=== PATIENT | female | born 1930 | race Caucasian/White ===

== ENCOUNTER 2016-09-22 13:28 | Observation (INO) | payer MEDICARE, OTHER ==
[~2016-09-22] VITALS: Ht 167.6 cm; Wt 67.4 kg
[~2016-09-22 13:28] MED LIST: ASPI-13 PO; FLAX100032 PO; MULT-14 PO
[2016-09-22 13:57] LABS: BASOPHILS % (AUTO) 0.2 % (0-3); EOSINOPHILS % (AUTO) 0.7 % (0-5); MONOCYTES % (AUTO) 8.4 % (4-12); Mean Corpuscular Hemoglobin 30.2 pg (27.0-35.0); Mean Corpuscular Volume 91.6 fL (81-100); NEUTROPHILS % (AUTO) 58.6 % (40-74); Platelet Count 267 bil/L (150-400)
--- NOTE | 2016-09-22 13:59 | ED.REPORT ---
HPI-Stroke / CVA Sep 22, 2016 ED Provider: Darrius Mcfarlane MD Pt is an 86 y/o female w/ a hx of aortic stenosis, HTN, presenting to the ED with her son due to generalized confusion onset 10:00 today. The patient has been under quite a bit of stress recently with her 's terminal illness. The patient has been repeating the same statements/answers many times. There has been some similar symptoms in the past months but of very low frequency. The patient is usually quite sharp and able to follow conversations well. She c/ o associated frontal headache which she attributes to not having eaten anything yet today. He denies focal numbness or weakness, slurred speech, facial droop, vision change, abdominal pain, CP, SOB, N/V/D. The patient had a similar presentation previously but she does not remember what the diagnosis may have been. She has no history of strokes, TIAs, seizures, dementia. She is not anticoagulated. 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 Nursing Notes Stated Complaint: POSSIBLE STROKE Chief Complaint: Stroke Symptoms Nursing Notes Reviewed: Yes Allergies: Coded Allergies: codeine (Verified Allergy, Unknown, NAUSEA, 09/22/16) morphine (Verified Allergy, Unknown, 09/22/16) Scheduled Aspirin (Aspirin) 325 Mg Tablet 325 MG PO DAILY (Reported) Losartan Potassium (Losartan Potassium) 25 Mg Tablet 25 MG PO DAILY (Reported) General Time Seen by Provider: 14:13 Chief Complaint Confusion Hx Obtained From: Patient Arrived By: Walk-in Time last known well 1000 Sudden in Onset?: No Symptom Duration: Since onset Progression Since Onset: Constant Location: : Head Quality: Aching Severity: Current: Mild Severity: Maximum: Mild Similar Sx Previous: Yes Past Medical History Past Medical History Notes: 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 Past Medical History Aortic stenosis Hypertension Arthritis Hx squamos cell cancer Past Surgical History R shoulder Hysterectomy Cholecystectomy R arm Smoking History Never Smoker Social History Alcohol Use: "Social" Ambulatory Status Independent Review of Systems Constitutional: Denies: Chills, Fever Respiratory: Denies: Non-productive cough, Shortness of breath Cardiovascular: Denies: Chest pain GI: Denies: Abdominal pain, Diarrhea, Nausea, Vomiting Neurologic: Reports: Confusion, Headache, Denies: Focal weakness, Numbness, Slurred speech, Unable to speak, Vision change, Weakness Complete sys rev & neg: except as marked. Physical Exam Initial Vital Signs Vital Signs (First) Date Time Temp Pulse Resp B/P Pulse Ox O2 Delivery O2 Flow Rate FiO2 09/22/16 14:24 36.8 67 16 167/90 97 Room Air Initial VS: Reviewed, Vital signs abnormal ENT: Mucous membranes moist, Conjunctiva normal, No scleral icterus Abdomen / GI: Soft, Non-tender, No guarding, No rebound, No distention Extremities: Vascular intact, No swelling, No tenderness Skin: Warm, Dry, No cyanosis Psychiatric: Mood/affect normal, Behavior normal, Normal thought content General/Constitutional: Awake, Alert, No acute distress, Cooperative, Not toxic appearing Head / Eyes: Atraumatic, Normocephalic, PERRL Neck: Atraumatic, Supple, No meningismus, Full range of motion Respiratory / Chest: Atraumatic, Breath sounds NL, Breath sounds = bilat, No respiratory distress, No rales, No rhonchi, No wheezing, No retractions, No stridor, No chest tenderness, No chest wall deformity, No crepitus Cardiovascular: Heart rate NL, Regular rhythm, Heart sounds NL, No gallop, No murmurs, No rubs, Cap refill not delayed, Peripheral circulation NL Neurologic: Oriented X3, Speech NL, No sensory deficits, CN II - XII intact, Cerebellar NL, Memory NL Very subtle right-sided pronator drift Repeating sentences and statements Interpretation & Diagnostics Lab Results Interpretation Result Diagram: 09/22/16 1341 09/22/16 1410 Test 09/22/16 13:41 09/22/16 14:10 09/22/16 14:24 White Blood Count 8.6th/mm3 (3.8-10.1) Red Blood Count 5.00mil/mm3 (3.90-5.20) Hemoglobin 15.1g/dL (12.0-15.6) Hematocrit 45.8% (35.0-46.0) Mean Corpuscular Volume 91.6fL (81-100) Mean Corpuscular Hemoglobin 30.2pg (27.0-35.0) Mean Corpuscular Hemoglobin Concent 33.0% (32.0-37.0) Red Cell Distribution Width 13.1% (12.3-15.4) Platelet Count 267bil/L (150-400) Neutrophils (%) (Auto) 58.6% (40-74) Lymphocytes (%) (Auto) 31.9% (14-46) Monocytes (%) (Auto) 8.4% (4-12) Eosinophils (%) (Auto) 0.7% (0-5) Basophils (%) (Auto) 0.2% (0-3) Prothrombin Time 10.0sec (8.1-12.5) Prothromb Time International Ratio 0.94ratio Activated Partial Thromboplast Time 27.0sec (22.8-33.0) Sodium Level 141mEq/L (134-144) Potassium Level 4.3mEq/L (3.5-5.2) Chloride Level 101mEq/L (97-108) Carbon Dioxide Level 23mmol/L (18-29) Blood Urea Nitrogen 11mg/dL (8-27) Creatinine 0.53mg/dL (0.57-1.00) Estimat Glomerular Filtration Rate 157mL/min (>59) Glucose Level 99mg/dL (60-99) Calcium Level 10.1mg/dL (8.5-10.1) Total Bilirubin 0.4mg/dL (0.0-1.2) Aspartate Amino Transf (AST/SGOT) 17U/L (0-50) Alanine Aminotransferase (ALT/SGPT) 15U/L (0-32) Alkaline Phosphatase 66U/L (25-165) Troponin T < 0.010ug/L (0.0-0.011) Total Protein 7.1g/dL (6.4-8.4) Albumin 4.6g/dL (3.4-5.0) Urine Color Straw (YELLOW) Urine Appearance Hazy (CLEAR,HAZY) Urine pH 7.0 (5.0-8.0) Urine Specific [place] 1.010 (1.003-1.035) Urine Protein Negativemg/dL (NEG,TRACE) Urine Glucose (UA) Negativemg/dL (NEGATIVE) Urine Ketones Negativemg/dL (NEGATIVE) Urine Occult Blood Small (NEGATIVE) Urine Nitrite Negative (NEGATIVE) Urine Bilirubin Negative (NEGATIVE) Urine Urobilinogen Normalmg/dL (NORMAL) Urine Leukocyte Esterase Negative (NEGATIVE) Urine RBC 3-10/hpf (0-2) Urine WBC 0-5/hpf (0-5) Urine Epithelial Cells Occasional/hpf (NONE-MOD) Urine Crystals None seen (NONE SEEN) Urine Bacteria None/hpf (NONE-FEW) Urine Hyaline Casts None/lpf (NONE) Urine Granular Casts None seen (NONE SEEN) Urine Waxy Casts None seen (NONE SEEN) Urine Red Blood Cell Casts None seen (NONE SEEN) Urine White Blood Cell Casts None seen (NONE SEEN) Urine Mucus None seen (None Seen) Urine Trichomonas None seen (NONE SEEN) Urine Yeast None (NONE SEEN) Urinalysis Comment None Urine Culture Reflexed Not indicated ECG Interpretation Time: 14:30 Interpreted by: ED physician Normal ECG Interpretation: Normal ECG w/ rate of... (64), Normal rate, Normal sinus rhythm, No acute ischemic changes, Normal QRS, Normal axis, Normal intervals, Adequate tracing CT Head Interpretation IMPRESSION: Chronic mild to moderate microvascular atherosclerotic change in the deep white matter of each hemisphere, but no stroke is found and no mass or hemorrhage is identified. Dictated by: Crow Hodge M.D. on 09/22/2016 at 14:42 Approved by: Crow Hodge M.D. on 09/22/2016 at 14:43 Study: Head CT no contrast Interpretation / Wet Read by: Interpret - Radiologist Re-Eval/Medical Decision Med Decision/Clinical Course Pt is an 86 y/o female w/ a hx of aortic stenosis, HTN, presenting to the ED with her son due to generalized confusion onset 10:00 today. History is quite limited from the patient as she has little insight into her current situation. Patient's son provides most of the history. He states that around 9:51 AM today that she seemed increasingly confused, was repeatedly asking the same question multiple times and really not been herself. She has had no slurred speech, facial droop, numbness, tingling or lateralizing weakness. She has not fallen or struck her head. Son denies that she has any history of dementia. Here in the emergency department she is afebrile with stable vital signs and examination as above. Her speech is fluent/organized though she seems quite confused repeatedly asking the same question and stating that she was speaking with me earlier when she just met me. EKG was obtained and interpreted by myself as documented above. CT scan of the head was obtained and demonstrated no acute intracranial process. Laboratory studies were obtained as below: CBC: Unremarkable CMP: Unremarkable Troponin: negative Coag studies: normal UA: No evidence of infection Presentation concerning for acute ischemic stroke. That being said, she is outside of the TPA window with last normal sore between 9 AM and 10 AM. 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 Therefore TPA was not administered. No evidence of hemorrhagic process at this time. No evidence of acute infectious etiology. No new medications that would not necessarily explain her altered mental status. At this time, I feel that she warrants admission for further workup as well as risk stratification. Patient discussed with admitting hospitalist and accepted for further management. Re-Evaluation/Progress : Time of Eval: 14:47 Re-Evaluation/Progress Note: Pt rechecked. Pt informed of need for admission for further workup. Pt understands and agrees with plan for admission. All questions addressed. Consultation : Referral / Consult Name: Hannah Smith MD Consulted With: Hospitalist Call Returned at: 14:59 Shop Director: Will see patient, Agrees with eval, Agrees with plan, Accepts admit Counseled Regarding: Diagnosis, Lab results, Need for admission Patient Discharge & Departure Impression: Primary Impression: Altered mental status Altered mental status type: unspecified Qualified Code: R41.82 - Altered mental status, unspecified Additional Impressions: Confusion Cerebrovascular accident CVA mechanism: unspecified Qualified Code: I63.9 - Cerebral infarction, unspecified Disposition: ADMITTED TO HOSPITAL Discharge Condition All VS Reviewed: Yes Condition: Stable Referrals: Ana Quach DO (PCP) Hector Yin MD Attestation Portions of this note were transcribed by Cristobal Clemens. I, Dr. Mcfarlane personally performed the history, physical exam and medical decision-making; I reviewed and confirmed the accuracy of the information in the transcribed note. Signed by Angélica Burnett, 09/22/16 - 1500 copies to: Hector Yin MD; Ana Quach Beck O MD Sep 22, 2016 13:59 CRISTOBAL CLEMENS Sep 22, 2016 14:13
[2016-09-22 14:11] LABS: INR 0.94 ratio
[2016-09-22 14:24] VITALS: BP 167/90; PULSE 67; RESP 16; O2SAT 97
[2016-09-22 14:33] LABS: APPEARANCE,URINE HAZY (CLEAR,HAZY); COLOR,URINE STRAW (YELLOW); OCCULT BLOOD,URINE SMALL (NEGATIVE); UROBILINOGEN,URINE NORMAL (NORMAL)
[2016-09-22] MEDS ORDERED: LOSA50TA37 PO (14:36)
--- NOTE | 2016-09-22 14:45 | DRSVH ---
PROCEDURE: CT BRAIN WITHOUT CONTRAST ([id number]) INDICATIONS: Stroke, CONFUSION, MEMORY LOSS TECHNIQUE: Noncontrast 4.5 mm thick angled axial sections acquired from the foramen magnum to the vertex, with c oronal reformats. COMPARISON: None. FINDINGS: Image quality: Excellent. CSF spaces: Basal cisterns are patent. No extra-axial fluid collections. The ventricles are symmet manuel in size and shape. Brain: No intracranial bleeds or masses. There is cerebral volume loss for age, with resultant vent ricular and sulcal prominence. There are periventricular and deep white matter chronic small vessel ischemic changes. There is intracranial internal carotid artery atherosclerosis. Skull and face: Calvarium and visualized facial bones appear intact, without suspicious lesions. Sinuses: Visualized sinuses and mastoids are clear. IMPRESSION: Chronic mild to moderate microvascular atherosclerotic change in the deep white matter of each hemisphere, but no stroke is found and no mass or hemorrhage is identified. Dictated by: Crow Hodge M.D. on 09/22/2016 at 14:42 Approved by: Crow Hodge M.D. on 09/22/2016 at 14:43
[2016-09-22] MEDS ORDERED: Alum-Mag Hydrox-Simeth 30 mL Suspension PO PRN ×2 (14:50→17:20)
[2016-09-22] MEDS ORDERED: Ondansetron 2 mg/mL 2 mL Inj IVPUSH PRN (14:50)
[2016-09-22 14:54] LABS: TROPONIN T < 0.010 ug/L (0.0-0.011)
[2016-09-22] MEDS ORDERED: LOSA25TA21 PO (15:41)
[2016-09-22] MEDS ORDERED: ASPI325T32 PO (15:45)
[2016-09-22 15:48] VITALS: BP 184/73; PULSE 68; RESP 16; O2SAT 97
--- NOTE | 2016-09-22 17:04 | PCM.HPMED ---
Subjective Date of Service Sep 22, 2016 Primary Provider: Admitting Physician: Hannah Smith MD Primary Care Physician: Ana Quach DO Attending Physician: Hannah Smith MD Admit Status: From the Emergency Department, 23-Hour Observation, Remote Telemetry Chief Complaint: Altered mental status with difficulty saying what she is thinking. History of Present Illness: This is an 86-year-old female who has a history of aortic stenosis hypertension who presented to the emergency room today accompanied by her son with increasing confusion which started about 10 AM. She has been under a lot of stress as was recently diagnosed with terminal cancer. He does note that she has trouble saying what she is thinking. She has no history of strokes in the past. She also notes slight diffuse headache present. Thinks is because she has not eaten anything today. Denies any chest pain palpitations shortness of breath or nausea or vomiting. Her symptoms are continuing. Presentation to the emergency room her symptoms were greater than 4 hours ago. And also by NIH stroke scale is not a candidate for TPA. CT of head without contrast was negative. She is not able to tell me whether she takes aspirin on a daily basis but does appear to be in her medication list. Review of Systems: All other review of systems are reviewed and are negative. Granted history is from patient and she currently has a poor historian. 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 Social History Hx Alcohol Use: Yes (wine, most nights ) Hx Substance Use: No Smoking Status: Never Smoker Living Arrangement: with Family Exam Vital Signs Vital Sign - Last Date Time Temp Pulse Resp B/P Pulse Ox O2 Delivery O2 Flow Rate FiO2 09/22/16 15:48 68 16 184/73 97 Room Air 09/22/16 14:24 36.8 Exam Head normocephalic atraumatic Eyes: PERRLA DC EOMI Mouth: No lesions Neck: Carotids 2+ over 4 without bruits Chest: Clear to auscultation Heart: Regular rate and rhythm S1-S2 without murmur Abdomen: Soft nontender bowel sounds present Extremities: No pedal edema Skin: No rashes Psych: Mood and affect are appropriate but she is slightly anxious Neuro: She is alert she is oriented 3 but does have an expressive aphasia and will at times speak kind of things that she was not asked about. Motor and sensory are intact bilaterally. Lab and Diagnostics Labs Laboratory Tests 72 Hours Test 09/22/16 13:41 09/22/16 14:10 09/22/16 14:24 White Blood Count 8.6th/mm3 (3.8-10.1) Red Blood Count 5.00mil/mm3 (3.90-5.20) Hemoglobin 15.1g/dL (12.0-15.6) Hematocrit 45.8% (35.0-46.0) Mean Corpuscular Volume 91.6fL (81-100) Mean Corpuscular Hemoglobin 30.2pg (27.0-35.0) Mean Corpuscular Hemoglobin Concent 33.0% (32.0-37.0) Red Cell Distribution Width 13.1% (12.3-15.4) Platelet Count 267bil/L (150-400) Neutrophils (%) (Auto) 58.6% (40-74) Lymphocytes (%) (Auto) 31.9% (14-46) Monocytes (%) (Auto) 8.4% (4-12) Eosinophils (%) (Auto) 0.7% (0-5) Basophils (%) (Auto) 0.2% (0-3) Prothrombin Time 10.0sec (8.1-12.5) Prothromb Time International Ratio 0.94ratio Activated Partial Thromboplast Time 27.0sec (22.8-33.0) Sodium Level 141mEq/L (134-144) Potassium Level 4.3mEq/L (3.5-5.2) Chloride Level 101mEq/L (97-108) Carbon Dioxide Level 23mmol/L (18-29) Blood Urea Nitrogen 11mg/dL (8-27) Creatinine 0.53mg/dL (0.57-1.00) Estimat Glomerular Filtration Rate 157mL/min (>59) Glucose Level 99mg/dL (60-99) Calcium Level 10.1mg/dL (8.5-10.1) Total Bilirubin 0.4mg/dL (0.0-1.2) Aspartate Amino Transf (AST/SGOT) 17U/L (0-50) Alanine Aminotransferase (ALT/SGPT) 15U/L (0-32) Alkaline Phosphatase 66U/L (25-165) Troponin T < 0.010ug/L (0.0-0.011) Total Protein 7.1g/dL (6.4-8.4) Albumin 4.6g/dL (3.4-5.0) Urine Color Straw (YELLOW) Urine Appearance Hazy (CLEAR,HAZY) Urine pH 7.0 (5.0-8.0) Urine Specific [place] 1.010 (1.003-1.035) Urine Protein Negativemg/dL (NEG,TRACE) Urine Glucose (UA) Negativemg/dL (NEGATIVE) Urine Ketones Negativemg/dL (NEGATIVE) Urine Occult Blood Small (NEGATIVE) Urine Nitrite Negative (NEGATIVE) Urine Bilirubin Negative (NEGATIVE) Urine Urobilinogen Normalmg/dL (NORMAL) Urine Leukocyte Esterase Negative (NEGATIVE) Urine RBC 3-10/hpf (0-2) Urine WBC 0-5/hpf (0-5) Urine Epithelial Cells Occasional/hpf (NONE-MOD) Urine Crystals None seen (NONE SEEN) Urine Bacteria None/hpf (NONE-FEW) Urine Hyaline Casts None/lpf (NONE) Urine Granular Casts None seen (NONE SEEN) Urine Waxy Casts None seen (NONE SEEN) Urine Red Blood Cell Casts None seen (NONE SEEN) Urine White Blood Cell Casts None seen (NONE SEEN) Urine Mucus None seen (None Seen) Urine Trichomonas None seen (NONE SEEN) Urine Yeast None (NONE SEEN) Urinalysis Comment None Urine Culture Reflexed Not indicated Result Diagram: 09/22/16 1341 09/22/16 1410 X-Rays, CTs and MRIs PROCEDURE: CT BRAIN WITHOUT CONTRAST ([id number]) INDICATIONS: Stroke, CONFUSION, MEMORY LOSS TECHNIQUE: Noncontrast 4.5 mm thick angled axial sections acquired from the foramen magnum to the vertex, with coronal reformats. COMPARISON: None. FINDINGS: Image quality: Excellent. CSF spaces: Basal cisterns are patent. No extra-axial fluid collections. The ventricles are symmetric in size and shape. Brain: No intracranial bleeds or masses. There is cerebral volume loss for age , with resultant ventricular and sulcal prominence. There are periventricular and deep white matter chronic small vessel ischemic changes. There is intracranial internal carotid artery atherosclerosis. Skull and face: Calvarium and visualized facial bones appear intact, without suspicious lesions. Sinuses: Visualized sinuses and mastoids are clear. IMPRESSION: Chronic mild to moderate microvascular atherosclerotic change in the deep white matter of each hemisphere, but no stroke is found and no mass or hemorrhage is identified. 12-lead ECG Sinus at a rate of 64 no acute abnormalities noted Assessment & Plan # Possible CVA, acute, present on admission Because her medication list says she is on aspirin and will also start Plavix at this time and will need to clarify later. Placed on telemetry Check CTA of head and neck, MRI brain and echocardiogram. Will also get speech therapy consultation # Hypertension, chronic, present on admission will monitor blood pressure and continue her home antihypertensive medications # DVT prophylaxis Placed on subcutaneous Lovenox # CODE STATUS Full code Resuscitation Status: CPR: Attempt Resuscitation Time spent 60 minutes Hannah Smith MD Sep 22, 2016 17:03
[2016-09-22] MEDS ORDERED: Polyethylene Glycol (PEG) 17 Gm Powder PO PRN (17:20)
[2016-09-22] MEDS ORDERED: Ondansetron 2 mg/mL 2 mL Inj IV PRN (17:20)
[2016-09-22 18:12] VITALS: BP 129/70; PULSE 72; RESP 20; O2SAT 97
[2016-09-22 18:20] VITALS: PULSE 69
--- NOTE | 2016-09-22 18:53 | NUR ---
Admit: Patient arrived to [facility] @ approx 1730. Alert & oriented, but confused about earlier events that led to her admission. Family at bedside. VSS. Telemetry placed. Oriented to room and call light system. Bed in low and locked position, bed rails up x2.
[2016-09-22 20:00] VITALS: PULSE 62
--- NOTE | 2016-09-22 20:31 | NUR ---
Refused Plavix: Pt refused Plavix stating she's not allowed to take it but couldn't remember the reason why.
[2016-09-22 21:29] VITALS: BP 146/79; PULSE 61; RESP 18; O2SAT 98
[2016-09-23 01:07] VITALS: BP 143/90; PULSE 65; RESP 18; O2SAT 96
[2016-09-23 05:09] VITALS: BP 130/77; PULSE 70; RESP 20; O2SAT 95
--- NOTE | 2016-09-23 05:38 | NUR ---
Uneventful Night: Pt had an uneventful night, no c/o pain, chest pain and SOB. Pt has some difficulty getting her thoughts out, family state she has been under extreme stress due to husbands illness and wonders if this has contributed to pts current mental status. Pt slept most of the night, pleasant and cooperative with care.
[2016-09-23 08:56] VITALS: BP 144/82; PULSE 70; RESP 16; O2SAT 97
--- NOTE | 2016-09-23 10:06 | NUR ---
Evaluation completed. Please go to "Notes" then click on "Assessments and Notes" (bottom left corner of screen). Then select appropriate discipline tab on top of screen.
[2016-09-23 11:27] VITALS: PULSE 62
--- NOTE | 2016-09-23 12:33 | DRSVH ---
[facility] [address] [place] [address] Echocardiogram Report Name: TRISTON DESAI te: 09/23/2016 Height: 66 in Hospital Exam Location: [facility] Weight: 149 lb Gender: Female BSA: 1.8 m2 : 1930 Age: 86 yrs BP: 130/77 mmHg Reason For Study: STROKE Ordering Physician: Performed By: Spencer Dueñas Referring Physician: Zhane DE LOS SANTOS Interpretation Summary The left ventricle is normal in size. Left ventricular systolic function is normal without focal wall motion abnormalities. The ejection fraction is estimated to be 60-65%. Assessment of diastolic parameters indicates a relaxation abnormality of the left ventricle, consistent with normal filling pressures. The right ventricle is normal in size and function. The right ventricular systolic pressure is estimated at 21 mmHg assuming a right atrial pressure of 3 mm Hg. Both atria are normal in size. The aortic valve is severely calcified. There is moderate aortic stenosis. The peak aortic velocity is 3.4 m/sec. The peak aortic velocity on the previous exam was 3.1 m/sec. The calculated aortic valve area is 1.3 cm2. There is no other significant valvular heart disease. The ascending aorta is mildly enlarged. Procedure: A two-dimensional transthoracic echocardiogram with color flow and Doppler was performed. The study quality was technically good. Comparison is made with the echocardiogram of 12/07/14. The patient was in normal sinus rhythm during the exam. Left Ventricle: The left ventricle is normal in size. There is normal left ventricular wall thickness. Left ventricular systolic function is normal without focal wall motion abnormalities. The ejection fraction is estimated to be 60-65%. Assessment of diastolic parameters indicates a relaxation abnormality of the left ventricle, consistent with normal filling pressures. Right Ventricle: The right ventricle is normal in size and function. Atria: Both atria are normal in size. The interatrial septum is intact with no evidence for an atrial septal defect. Mitral Valve: The mitral valve is normal in structure and function. There is trace mitral regurgitation. Aortic Valve: The aortic valve is trileaflet. The aortic valve is severely calcified. There is moderate aortic stenosis. The peak aortic velocity is 3.4 m/sec. The peak aortic velocity on the previous exam was 3.1 m/sec. The aortic valve mean gradient is 31.2 mmHg. The calculated aortic valve area is 1.3 cm2. No aortic regurgitation is present. Tricuspid Valve: The tricuspid valve is normal in structure and function. There is trace tricuspid regurgitation. The right ventricular systolic pressure is estimated at 21 mmHg assuming a right atrial pressure of 3 mm Hg. Pulmonic Valve: The pulmonic valve is normal in structure and function. There is trace pulmonic regurgitation. There is no other significant valvular heart disease. Great Vessels: The aortic root is normal size. The ascending aorta is mildly enlarged. The pulmonary artery is normal size. The IVC is of normal diameter and collapses greater than 50% with a sniff. This suggests a low right atrial pressure of 3 mm Hg. Pericardium/ Pleura There is no pericardial effusion. There is no pleural effusion. MMode/2D Measurements & Calculations LVIDd: 4.0 cm LA dimension: 3.8 cm RA long axis LVOT diam: 2.2 cm LVIDs: 2.8 cm AoV Opening FS: 31.4 % LA A2 area: 16.4 cm RA area EPSS: 0.70 cm LA A4 area: 15.9 cm Ao root diam IVSd: 1.1 cm LA length (vol) : 13.4 cm LVPWd: 0.92 cm RA vol Aortic Jxn: 2.8 cm LA vol: 47.4 ml : 33.7 ml asc Aorta Diam LA vol index RA : 19.1 mm2 Ao Arch Diam (Prox Trans): 2.5 cm IVC diam: 1.7 cm LV andre. diameter/BSA LV sys. diameter/BSA (cm/m^2): 2.3 (cm/m^2): 1.6 Doppler Measurements & Calculations Ao V2 max MV E max tim MV E/A: 0.60 TR max tim : 343.4 cm/sec : 56.6 cm/sec Med Peak E' Tim : 209.2 cm/sec Ao max P.2 mmHg MV A max tim TR max PG Ao mean P.2 mmH.6 cm/sec E/E' med: 13.7 : 17.5 mmHg LVOT Max Tim Pulm A Revs Dur PA V2 max : 110.5 cm/sec : 82.3 cm/sec MV A dur PA mean PG MAYA(I,D): 1.3 cm : 0.16 sec sev ratio: 0.34 PA Accel Time : 0.15 sec MV dec time: 0.39 secAo V2 mean LV V1 max PG PA V2 mean : 269.9 cm/sec : 58.2 cm/sec Ao V2 VTI: 71.9 cm LV V1 VTI PA pr(Accel) : 24.4 cm : 5.8 mmHg MAYA(V,D): 1.2 cm2 MAYA indexed to BSA Pulm A Revs Dur - MV A (cm^2/m^2): 0.73 Dur: -0.05 msec Reading Physician:LAURA
[2016-09-23 13:28] VITALS: BP 109/71; PULSE 61; RESP 18; O2SAT 97
--- NOTE | 2016-09-23 13:43 | DRSVH ---
PROCEDURE: MRI STROKE PROTOCOL ([id number]) Pre- and post-contrast brain MRI, non-contrast brain MR angiogram, pre- and postcontrast neck MR dylan ogram INDICATIONS: Altered mental status TECHNIQUE: Brain: Noncontrast axial T1 spin echo, axial T2 fast spin echo, sagittal and axial FLAIR, coronal T2 fast spin echo, axial gradient echo, axial diffusion and ADC through the brain. After the administr ation of contrast, axial 3D VIBE of the cranial vasculature and brain. Brain MRA: Non-contrast 3-D time of flight MR angiogram, with multiple fxjjtje-tpznecqdl-rnnfdwpgri (MIP) reformats performed. Neck MRA: Axial and sagittal TruFISP through the neck. Coronal dynamic MR angiogram during administ ration of contrast in the arterial and venous phases, with 3-dimenstional wgieoug-tdmjvmdjl-urxxtsqsh n (MIP) reformats constructed from subtraction images. COMPARISON: None. FINDINGS: Image quality: Excellent. BRAIN: CSF spaces: Ventricles are symmetrical in size and shape. Basal cisterns are patent. No extra-axia l fluid collections. Brain: No intracranial bleeds or mass effects. There is mild cerebral volume loss. Moderate bilatera l periventricular matter chronic small vessel is patent changes are present. Diffusion weighted imag es show no acute ischemic insults. Brainstem appears normal. Normal intravascular flow voids are pr esent. No abnormal intracranial enhancement. Skull and face: Calvarial marrow signal is normal. Orbits appear normal. Sinuses: Sinuses and mastoids are clear. BRAIN MR ANGIOGRAM: Anterior circulation: Intracranial internal carotid arteries are normal in size and enhancement. Th e flow within the paired anterior cerebral arteries is normal and symmetric. The flow within the mid dle cerebral arteries is normal and symmetric. The anterior communicating artery is seen. No stenos es, occlusions, or aneurysms. Posterior circulation: The left vertebral artery is dominant. The distal right vertebral artery is n ot well-seen. The visualized portions of the vertebral arteries demonstrate normal caliber, and join to form a normal appearing basilar artery. The flow within the posterior cerebral arteries is normal and symmetric. No stenoses, occlusions, or aneurysms. NECK MR ANGIOGRAM: Carotids: Great vessels demonstrate a conventional anatomy as they arise from the aortic arch. The origins of the common carotid arteries appear patent. The calibers and courses of both common caroti d arteries are normal. There is mild narrowing at the carotid bifurcation with 20% stenosis of the ri ght internal carotid artery and 30% stenosis of the left internal carotid artery at its origin. The internal carotid arteries otherwise demonstrate normal course and caliber. Posterior circulation: The origins of the vertebral arteries appear patent. More superior portions of both vertebral arteries demonstrate normal course and caliber, and join to form a normal appearing basilar artery. Miscellaneous: Subclavian arteries appear patent. Pre-contrast images through the neck show no soft tissue abnormalities. IMPRESSION: BRAIN MRI: 1. No acute intracranial abnormalities. 2. Mild cerebral volume loss and moderate chronic microvascular ischemic changes. BRAIN MR ANGIOGRAM: 1. The distal right vertebral artery is not well-seen. 2. No high-grade stenosis or occlusion in anterior or posterior circulations. NECK MR ANGIOGRAM: 1. Mild narrowing (20-30%) at the origins of internal carotid arteries bilaterally. 2. Normal vertebral arteries bilaterally. The estimate of stenosis included in the report of the imaging study was calculated using the NASCET method Dictated by: Magda Reyes M.D. on 09/23/2016 at 13:32 Approved by: Magda Reyes M.D. on 09/23/2016 at 13:42
[2016-09-23 14:59] VITALS: BP 126/79; PULSE 65; RESP 18; O2SAT 96
--- NOTE | 2016-09-23 15:46 | NUR ---
Social Work-initial assessment/readiness for discharge: Data:See initial assessment. Pt is a 86 y/o female who was admitted on 09/22/16 for alerted mental status per H&P. Pt's insurance is [employer] and PCP is Praveen Quach MD.EMR Reviewed. SW met with pt and at bedside to discuss discharge planning, SW role explained. Pt is alert and oriented x3. Pt and reside on [place] where pt remains independent at baseline. Pt does not use any DME and drives. Pt has no HH Or SNF history. Pt has no [facility] care insurance or [facility] benefits. SW discussed DPOA/ advanced directive, pt states they have completed this and encouraged a copy to be brought into the hospital. PT and ST have cleared pt for home no needs. Pt states her will provide transport home at discharge. Pt informed SW that she has been dealing with stress in her life, SW discussed coping strategies,etc. SW provided phone number and plan on white board in room. No anticipated discharge needs. SW will continue to follow if needs arise. Assessment:Pt who is independent at baseline. Plan:Pt to discharge home when medically stable via POV. No anticipated discharge needs. SW will continue to follow if needs arise. JB Quiñones Addendum: 09/23/16 at 1600 by MAXWELL SOLIMAN SS Amended: Links added.
--- NOTE | 2016-09-23 16:12 | PCM.DIMED ---
Discharge Instructions Date of Service Sep 23, 2016 Dates of Hospitalization Sep 22, 2016 at 16:04 Discharge Diagnosis Discharge Diagnosis # Acute and transient memory deficit of unclear exact etiology but likely due to transient global amnesia and less likely transient ischemic attack (TIA). present on admission. Resolved. # History of aortic stenosis. stable. # Hypertension. stable # Chronic Hypercholesterolemia. Diet Low fat, Low Sodium, Heart Healthy Activity No restrictions Call your provider Fever or Chills, Shortness of breath, Chest pain, Weakness (unilateral) Patient Instructions Seek immediate medical attention if any new or worsening signs or symptoms occur. Follow-up plan Followup with primary care provider in 3-7 days Followup with your territory account manager as previously planned. Follow-up Provider: Ana Quach DO Provider: Hector Yin MD, Masoud Sep 23, 2016 16:12
--- NOTE | 2016-09-23 16:48 | NUR ---
Discharge Pt d/c home with at 1648, pt walked out with SRN. Pt denied pain. IV d/c prior to leaving. All personal belongings taken with pt. Discharge info discussed with pt while was present. Pt denied having questions, stated a f/u with PCP was scheduled. VSS.
--- NOTE | 2016-09-23 17:38 | PCM.DC.MED ---
Discharge Summary Date of Service Sep 23, 2016 Dates of Hospitalization Date of Hospital Admission Sep 22, 2016 at 16:04 Date of Discharge: Sep 23, 2016 Providers: Admitting Physician: Hannah Smith MD Primary Care Physician: Ana Quach DO Attending Physician: Hannah Smith MD Diagnosis at Time of Discharge Diagnosis at Time of Discharge # Acute and transient memory deficit of unclear exact etiology but likely due to transient global amnesia and less likely transient ischemic attack (TIA). present on admission. Resolved. # History of aortic stenosis. stable. # Hypertension. stable # Chronic Hypercholesterolemia. Procedures XRay, CTs & MRIs Date of Service: 09/22/16 1342 PROCEDURE: CT BRAIN WITHOUT CONTRAST ([id number]) IMPRESSION: Chronic mild to moderate microvascular atherosclerotic change in the deep white matter of each hemisphere, but no stroke is found and no mass or hemorrhage is identified. Dictated by: Crow Hodge M.D. on 09/22/2016 at 14:42 Approved by: Crow Hodge M.D. on 09/22/2016 at 14:43 Date of Service: 09/23/16 0757 PROCEDURE: MRI STROKE PROTOCOL ([id number]) Pre- and post-contrast brain MRI, non-contrast brain MR angiogram, pre- and postcontrast neck MR angiogram IMPRESSION: BRAIN MRI: 1. No acute intracranial abnormalities. 2. Mild cerebral volume loss and moderate chronic microvascular ischemic changes. BRAIN MR ANGIOGRAM: 1. The distal right vertebral artery is not well-seen. 2. No high-grade stenosis or occlusion in anterior or posterior circulations. NECK MR ANGIOGRAM: 1. Mild narrowing (20-30%) at the origins of internal carotid arteries bilaterally. 2. Normal vertebral arteries bilaterally. The estimate of stenosis included in the report of the imaging study was calculated using the NASCET method Dictated by: Magda Reyes M.D. on 09/23/2016 at 13:32 Approved by: Magda Reyes M.D. on 09/23/2016 at 13:42 Cardiac Echo Impression Date of Service: 09/23/16 0800 Echocardiogram Report Interpretation Summary The left ventricle is normal in size. Left ventricular systolic function is normal without focal wall motion abnormalities. The ejection fraction is estimated to be 60-65%. Assessment of diastolic parameters indicates a relaxation abnormality of the left ventricle, consistent with normal filling pressures. The right ventricle is normal in size and function. The right ventricular systolic pressure is estimated at 21 mmHg assuming a right atrial pressure of 3 mm Hg. Both atria are normal in size. The aortic valve is severely calcified. There is moderate aortic stenosis. The peak aortic velocity is 3.4 m/sec. The peak aortic velocity on the previous exam was 3.1 m/sec. The calculated aortic valve area is 1.3 cm2. There is no other significant valvular heart disease. The ascending aorta is mildly enlarged. Reading Physician:PM Brief History As noted in H&P by Dr. Smith: This is an 86-year-old female who has a history of aortic stenosis hypertension who presented to the emergency room today accompanied by her son with increasing confusion which started about 10 AM. She has been under a lot of stress as was recently diagnosed with terminal cancer. He does note that she has trouble saying what she is thinking. She has no history of strokes in the past. She also notes slight diffuse headache present. Thinks is because she has not eaten anything today. Denies any chest pain palpitations shortness of breath or nausea or vomiting. Her symptoms are continuing. Presentation to the emergency room her symptoms were greater than 4 hours ago. And also by NIH stroke scale is not a candidate for TPA. CT of head without contrast was negative. She is not able to tell me whether she takes aspirin on a daily basis but does appear to be in her medication list. Hospital Course # Acute and transient memory deficit of unclear exact etiology but likely due to transient global amnesia and less likely transient ischemic attack (TIA). present on admission. Resolved. # History of aortic stenosis. stable. # Hypertension. stable # Chronic Hypercholesterolemia. - pt says unable to tolerate statins and refuses to try it. by day of d/c lungs CTA bialt. Neuro exam non-focal and patient awake, alert, and Ox3. Exam Vital Signs (Last) Date Time Temp Pulse Resp B/P Pulse Ox O2 Delivery O2 Flow Rate FiO2 09/23/16 14:59 36.6 65 18 126/79 96 Room Air Test 09/22/16 13:41 09/22/16 14:10 09/22/16 14:24 09/23/16 05:45 White Blood Count 8.6th/mm3 (3.8-10.1) Red Blood Count 5.00mil/mm3 (3.90-5.20) Hemoglobin 15.1g/dL (12.0-15.6) Hematocrit 45.8% (35.0-46.0) Mean Corpuscular Volume 91.6fL (81-100) Mean Corpuscular Hemoglobin 30.2pg (27.0-35.0) Mean Corpuscular Hemoglobin Concent 33.0% (32.0-37.0) Red Cell Distribution Width 13.1% (12.3-15.4) Platelet Count 267bil/L (150-400) Neutrophils (%) (Auto) 58.6% (40-74) Lymphocytes (%) (Auto) 31.9% (14-46) Monocytes (%) (Auto) 8.4% (4-12) Eosinophils (%) (Auto) 0.7% (0-5) Basophils (%) (Auto) 0.2% (0-3) Prothrombin Time 10.0sec (8.1-12.5) Prothromb Time International Ratio 0.94ratio Activated Partial Thromboplast Time 27.0sec (22.8-33.0) Hemoglobin A1c 5.9% (4.8-5.6) Sodium Level 141mEq/L (134-144) Potassium Level 4.3mEq/L (3.5-5.2) Chloride Level 101mEq/L (97-108) Carbon Dioxide Level 23mmol/L (18-29) Blood Urea Nitrogen 11mg/dL (8-27) Creatinine 0.53mg/dL (0.57-1.00) Estimat Glomerular Filtration Rate 157mL/min (>59) Glucose Level 99mg/dL (60-99) Calcium Level 10.1mg/dL (8.5-10.1) Magnesium Level 2.3mg/dL (1.6-2.6) Total Bilirubin 0.4mg/dL (0.0-1.2) Aspartate Amino Transf (AST/SGOT) 17U/L (0-50) Alanine Aminotransferase (ALT/SGPT) 15U/L (0-32) Alkaline Phosphatase 66U/L (25-165) Troponin T < 0.010ug/L (0.0-0.011) Total Protein 7.1g/dL (6.4-8.4) Albumin 4.6g/dL (3.4-5.0) Urine Color Straw (YELLOW) Urine Appearance Hazy (CLEAR,HAZY) Urine pH 7.0 (5.0-8.0) Urine Specific [place] 1.010 (1.003-1.035) Urine Protein Negativemg/dL (NEG,TRACE) Urine Glucose (UA) Negativemg/dL (NEGATIVE) Urine Ketones Negativemg/dL (NEGATIVE) Urine Occult Blood Small (NEGATIVE) Urine Nitrite Negative (NEGATIVE) Urine Bilirubin Negative (NEGATIVE) Urine Urobilinogen Normalmg/dL (NORMAL) Urine Leukocyte Esterase Negative (NEGATIVE) Urine RBC 3-10/hpf (0-2) Urine WBC 0-5/hpf (0-5) Urine Epithelial Cells Occasional/hpf (NONE-MOD) Urine Crystals None seen (NONE SEEN) Urine Bacteria None/hpf (NONE-FEW) Urine Hyaline Casts None/lpf (NONE) Urine Granular Casts None seen (NONE SEEN) Urine Waxy Casts None seen (NONE SEEN) Urine Red Blood Cell Casts None seen (NONE SEEN) Urine White Blood Cell Casts None seen (NONE SEEN) Urine Mucus None seen (None Seen) Urine Trichomonas None seen (NONE SEEN) Urine Yeast None (NONE SEEN) Urinalysis Comment None Urine Culture Reflexed Not indicated Triglycerides Level 228mg/dL (0-149) Cholesterol Level 298mg/dL (100-199) LDL Cholesterol, Calculated 210.400mg/dL (0-99) VLDL Cholesterol 45.600mg/dL HDL Cholesterol 42mg/dL (>39) Cholesterol/HDL Ratio 7.10 (0.0-4.4) Discharge Medications Discharge Medications Aspirin (Aspirin) 325 Mg Tablet 325 MG PO DAILY (Reported) Losartan Potassium (Losartan Potassium) 25 Mg Tablet 25 MG PO DAILY (Reported) Followup Plan Disposition: Home Follow-up plan Followup with primary care provider in 3-7 days Followup with your stonework tracer as previously planned. Discharge Diet: Low fat, Low Sodium, Heart Healthy Discharge Activity: No restrictions Patient Instructions Seek immediate medical attention if any new or worsening signs or symptoms occur. Follow-up Provider: Aan Quach DO Provider: Hector Yin MD Time spent 35 min copies to: Hector Yin MD; Ana Quach Masoud Sep 23, 2016 17:38
--- NOTE | 2016-09-23 18:07 | NUR ---
Case Management: Attempted to provide patient with LEOS, unable as patient has been discharged. Gale Kraus RN
== END 2016-09-23 16:59 | disposition home or self-care (01) ==
LOC: SED 13:28 → MPC 16:04
PROVIDERS: ADMIT Specialist; ATTEND Specialist
DX: R41.82 Altered mental status, unspecified (principal); I35.0 Nonrheumatic aortic (valve) stenosis; I10 Essential (primary) hypertension; E78.00 Pure hypercholesterolemia, unspecified; Z79.82 Long term (current) use of aspirin; M19.90 Unspecified osteoarthritis, unspecified site; Z85.828 Personal history of other malignant neoplasm of skin
CPT/HCPCS: 36415; 70450; 70549; 70553; 80053; 80061; 81000; 82948; 83036; 83735; 84484; 85025; 85610; 85730; 92610; 93005; 97161; 99285; A9585; C8929; G0378; G8978; G8979; G8980; G8996; G8997; G8998